=== PATIENT | male | born 1955 | race African-American/Black ===

== ENCOUNTER 2018-07-04 22:10 | Emergency (ER) | payer SELFPAY ==
[~2018-07-04] VITALS: Ht 182.9 cm; Wt 91.0 kg
[2018-07-04 22:43] VITALS: BP 150/69
== END 2018-07-05 04:52 | disposition left against medical advice (07) ==
LOC: ER 22:10
DX: Z53.21 Procedure and treatment not carried out due to patient leaving prior to being seen by health care provider (principal)

== ENCOUNTER 2019-06-14 00:51 | Emergency (ER) | payer SELFPAY ==
[~2019-06-14] VITALS: Ht 182.9 cm; Wt 86.0 kg
[2019-06-14] MEDS ORDERED: FLUORESCEIN SODIUM 1MG/STRIP BOTHEYE ONE (01:30)
[2019-06-14] MEDS ORDERED: BALANCED SALT IRRIG SOLN 15ML IR ONE (01:30)
[2019-06-14] MEDS ORDERED: TETRACAINE 0.5% OPHTH DROPS 4ML BOTHEYE ONE (01:30)
[2019-06-14 02:14] VITALS: BP 135/69
== END 2019-06-14 02:21 | disposition home or self-care (01) ==
LOC: ER 01:32
DX: H57.89 Other specified disorders of eye and adnexa (principal); Z88.6 Allergy status to analgesic agent; Z88.1 Allergy status to other antibiotic agents; Z88.5 Allergy status to narcotic agent
CPT/HCPCS: 99283